=== PATIENT | female | born 1945 | race Caucasian/White ===

== ENCOUNTER → 2020-09-19 | Outpatient (CLI) | payer BC, MEDICARE ==
--- NOTE | 2020-09-20 08:54 | REP ---
INDICATION: F/U FX. COMPARISON: None. TECHNIQUE: Three views of the right humerus FINDINGS: And oblique mildly displaced fracture through the proximal to mid humeral shaft noted with overlying soft tissue injury. IMPRESSION: Oblique minimally displaced fracture of the proximal to mid humeral shaft. <Electronically signed by Reno Che > 09/20/20 [id number]
== END ==
LOC: M SOG 16:32
PROVIDERS: ATTEND Student in an Organized Health Care Education/Training Program
DX: S42.201A Unspecified fracture of upper end of right humerus, initial encounter for closed fracture (principal); W18.30XA Fall on same level, unspecified, initial encounter; Y92.009 Unspecified place in unspecified non-institutional (private) residence as the place of occurrence of the external cause

== ENCOUNTER → 2020-10-03 | Outpatient (CLI) | payer MEDICARE ==
--- NOTE | 2020-10-03 16:58 | REP ---
INDICATION: F/U FX. COMPARISON: 09/20/2019 TECHNIQUE: AP and lateral views of the right humerus. FINDINGS: There is an oblique/spiral fracture of the humeral diaphysis with mild displacement of the distal fracture component of approximately 5 mm. Findings are essentially unchanged from prior examination. No significant callus formation or periosteal reaction identified to suggest appropriate healing. IMPRESSION: Oblique/spiral fracture of the proximal to mid humeral diaphysis unchanged in appearance. No callus formation or periosteal reaction noted to suggest appropriate healing. <Electronically signed by Reno Che > 10/03/20 [id number]
== END ==
LOC: M SOG 15:18
PROVIDERS: ATTEND Orthopaedic Surgery
DX: S42.201D Unspecified fracture of upper end of right humerus, subsequent encounter for fracture with routine healing (principal)

== ENCOUNTER → 2020-11-21 | Outpatient (CLI) | payer MEDICARE ==
--- NOTE | 2020-11-21 13:45 | REP ---
INDICATION: DISPL SPIRAL FX SHAFT OF HUMER, R ARM, 7THD. COMPARISON: Comparison study October 03, 2020.. TECHNIQUE: Three views of the right humerus are provided. FINDINGS: Three views right humerus demonstrate nondisplaced comminuted fracture of the diaphysis of the humerus with healing callus formation. There is diffuse osteopenia. No significant change in position from the prior study. IMPRESSION: Healing comminuted diaphyseal fracture of the right humerus. Diffuse osteopenia. <Electronically signed by Michael Flowers > 11/21/20 [id number]
== END ==
LOC: M SOG 12:50
PROVIDERS: ATTEND Orthopaedic Surgery Adult Reconstructive Orthopaedic Surgery
DX: S42.341D Displaced spiral fracture of shaft of humerus, right arm, subsequent encounter for fracture with routine healing (principal); W18.30XD Fall on same level, unspecified, subsequent encounter; Y92.009 Unspecified place in unspecified non-institutional (private) residence as the place of occurrence of the external cause

== ENCOUNTER → 2020-12-24 | Outpatient (CLI) | payer MEDICARE ==
--- NOTE | 2020-12-24 14:29 | REP ---
INDICATION: FX F/U. COMPARISON: 11/21/2020 TECHNIQUE: Two views FINDINGS: The previously described fracture is unchanged in alignment. Callus formation is seen consistent with healing. IMPRESSION: Healing fracture <Electronically signed by Yamil Bautista > 12/24/20 [id number]
== END ==
LOC: M SOG 10:38
PROVIDERS: ATTEND Student in an Organized Health Care Education/Training Program
DX: S42.341D Displaced spiral fracture of shaft of humerus, right arm, subsequent encounter for fracture with routine healing (principal); W18.30XD Fall on same level, unspecified, subsequent encounter; Y92.009 Unspecified place in unspecified non-institutional (private) residence as the place of occurrence of the external cause